=== PATIENT | male | born 1970 | race Caucasian/White ===

== ENCOUNTER 2019-05-30 18:13 | Emergency (ER) | payer BC ==
[~2019-05-30] VITALS: Ht 167.6 cm; Wt 148.8 kg
--- NOTE | 2019-05-30 18:25 | NUR ---
REPORT TO Mercedes ORR R.N. PATIENT IN BED HOOKED TO BP MONITOR. PHARMACY CALLED TO VERIFY PAIN MEDICATION PATIENT WAITING ON XRAY
[2019-05-30] MEDS ORDERED: CLONIDINE HCL 0.2 MG TAB PO ONE (18:30)
[2019-05-30] MEDS ORDERED: HYDROCODONE/APAP 7.5MG-325MG 1 EA TAB PO ONE (18:30)
[2019-05-30] MEDS ORDERED: ONDANSETRON HCL 4 MG ORAL DISINTEGRATING TAB PO ONE (18:30)
--- NOTE | 2019-05-30 19:00 | Diagnostic Imaging Report ---
WRIST COMPLETE LEFT, HAND 3+ VIEWS LEFT - 3 views HISTORY: ^pain ^[id number] ^[id number] COMPARISON: None available. FINDINGS: Bones: No acute displaced fracture. Osseous alignment is within normal limits. Joints: The joint spaces are well-maintained. Soft tissues: The soft tissues appear unremarkable. IMPRESSION: No acute radiographic abnormality. Signed by: Elver Jay MD on 05/30/2019 6:57 PM
[2019-05-30 19:25] VITALS: BP 182/86
== END 2019-05-30 19:08 | disposition home or self-care (01) ==
LOC: ER 18:13
DX: S63.522A Sprain of radiocarpal joint of left wrist, initial encounter (principal); S63.622A Sprain of interphalangeal joint of left thumb, initial encounter; X50.1XXA Overexertion from prolonged static or awkward postures, initial encounter; Y92.008 Other place in unspecified non-institutional (private) residence as the place of occurrence of the external cause
CPT/HCPCS: 73110; 73130; 99283; Q0162

== ENCOUNTER 2020-05-05 20:23 | Observation (INO) | payer BC ==
[~2020-05-05] VITALS: Ht 167.6 cm; Wt 148.8 kg
[2020-05-05 20:43] LABS: BASOPHILS # (AUTO) 0.1 (0.0-0.1); BASOPHILS % 0.8 % (0.0-1.0); EOSINOPHILS # (AUTO) 0.3 (0.0-0.4); EOSINOPHILS % 2.9 % (0.0-6.0); HEMATOCRIT 39.7 % (38.2-49.6); HEMOGLOBIN 13.2 g/dL (14.0-18.0); LYMPHOCYTES # (AUTO) 3.8 (1.0-3.2); LYMPHOCYTES % 41.5 % (18.0-39.1); MEAN CORPUSCULAR HGB CONC 33.2 g/dL (31-35); MEAN CORPUSCULAR VOLUME 93.2 fL (81-99); MONOCYTES % 11.4 % (4.4-11.3); NEUTROPHILS # (AUTO) 3.9 (2.1-6.9); NEUTROPHILS % 42.4 % (38.7-80.0); PLATELET COUNT 186 x10e3/uL (140-360); RED BLOOD COUNT 4.26 x10e6/uL (4.3-5.7); RED CELL DISTRIBUTION WIDTH 12.7 % (11.7-14.4)
[2020-05-05] MEDS ORDERED: ASPIRIN 81 MG CHEW TAB PO ONE (20:45)
[2020-05-05] MEDS ORDERED: HYDRALAZINE HCL 10 MG TAB PO ONE (20:45)
[2020-05-05 20:52] LABS: INR 0.98; PROTHROMBIN TIME 13.6 seconds (11.9-14.5)
[2020-05-05 20:53] LABS: PARTIAL THROMBOPLASTIN TIME 29.7 seconds (23.8-35.5)
[2020-05-05 21:02] LABS: ALANINE AMINOTRANSFERASE 90 IU/L (0-55); ALBUMIN 3.6 g/dL (3.5-5.0); ALBUMIN/GLOBULIN RATIO 0.9 (0.8-2.0); ALKALINE PHOSPHATASE 69 IU/L (40-150); ANION GAP 12.2 mmol/L (8-16); BLOOD UREA NITROGEN 15 mg/dL (7-26); BUN/CREATININE RATIO 14 (6-25); CARBON DIOXIDE 26 mmol/L (22-29); CHLORIDE 106 mmol/L (98-107); CREATINE KINASE 131 IU/L (30-200); CREATININE, SERUM 1.09 mg/dL (0.72-1.25); EST GLOMERULAR FILTRATION RATE > 60 ML/MIN (60-); GLUCOSE 162 mg/dL (74-118); POTASSIUM 4.2 mmol/L (3.5-5.1); SODIUM 140 mmol/L (136-145)
[2020-05-05] MEDS ORDERED: DEXTROSE 50% SYRINGE 50 ML IV PRN (22:15)
[2020-05-05] MEDS ORDERED: SODIUM CHLORIDE FLUSH 10 ML SYR INJ PRN (22:15)
[2020-05-05] MEDS ORDERED: ONDANSETRON HCL INJ 2MG/ML 2ML 2 MG/ML VIAL IV PRN (22:15)
[2020-05-05] MEDS ORDERED: ACETAMINOPHEN 1000 MG/100 ML 100 ML IV ONE (22:27)
[2020-05-06] VITALS (8 sets, daily range): BP systolic 140–195; BP diastolic 77–97
[2020-05-06] MEDS: NITROGLYCERIN 2% OINT 1 GM PKT TOP SCH ×3 (00:38→11:20)
[2020-05-06] MEDS: FAMOTIDINE 20 MG/2 ML VIAL IV SCH ×2 (00:38→09:40)
[2020-05-06] MEDS ORDERED: ONDANSETRON HCL INJ 2MG/ML 2ML 2 MG/ML VIAL IV PRN (00:45)
[2020-05-06] MEDS ORDERED: HYDRALAZINE HCL 20 MG/ML VIAL IV PRN (00:45)
[2020-05-06] MEDS ORDERED: POLYETHYLENE GLYCOL 3350 17 GM PACK PO PRN (00:45)
[2020-05-06] MEDS ORDERED: DEXTROSE 50% SYRINGE 50 ML IV PRN (00:45)
[2020-05-06] MEDS ORDERED: DIPHENHYDRAMINE HCL 25 MG CAP PO PRN (00:45)
[2020-05-06] MEDS ORDERED: POTASSIUM CHLORIDE 20 MEQ TAB CR PO PRN (00:45)
[2020-05-06] MEDS ORDERED: SIMETHICONE 80 MG CHEW PO PRN (00:45)
[2020-05-06] MEDS ORDERED: DOCUSATE SODIUM 100 MG CAP PO PRN (00:45)
[2020-05-06] MEDS ORDERED: MELATONIN 5 MG TABLET PO PRN (00:45)
[2020-05-06] MEDS ORDERED: ACETAMINOPHEN 325 MG TAB PO PRN (00:45)
[2020-05-06] MEDS ORDERED: LOSARTAN-HCTZ1 EAC2 (03:26)
[2020-05-06] MEDS ORDERED: LEVOTHYROXINE50 MCG PO (03:26)
[2020-05-06] MEDS ORDERED: CRESTOR10 MG (03:26)
[2020-05-06] MEDS ORDERED: METFORMIN HCL500 MG PO (03:26)
[2020-05-06 06:57] LABS: BASOPHILS # (AUTO) 0.1 (0.0-0.1); BASOPHILS % 0.8 % (0.0-1.0); EOSINOPHILS # (AUTO) 0.3 (0.0-0.4); EOSINOPHILS % 3.4 % (0.0-6.0); HEMATOCRIT 37.1 % (38.2-49.6); HEMOGLOBIN 12.3 g/dL (14.0-18.0); LYMPHOCYTES # (AUTO) 2.5 (1.0-3.2); MEAN CORPUSCULAR HEMOGLOBIN 31.3 pg (28-32); MEAN CORPUSCULAR HGB CONC 33.2 g/dL (31-35); MEAN CORPUSCULAR VOLUME 94.4 fL (81-99); MONOCYTES # (AUTO) 0.9 (0.2-0.8); MONOCYTES % 11.6 % (4.4-11.3); NEUTROPHILS # (AUTO) 3.6 (2.1-6.9); NEUTROPHILS % 49.2 % (38.7-80.0); PLATELET COUNT 179 x10e3/uL (140-360); RED BLOOD COUNT 3.93 x10e6/uL (4.3-5.7); RED CELL DISTRIBUTION WIDTH 12.8 % (11.7-14.4)
[2020-05-06 07:13] LABS: ANION GAP 12.3 mmol/L (8-16); BLOOD UREA NITROGEN 15 mg/dL (7-26); BUN/CREATININE RATIO 16 (6-25); CALCIUM 8.4 mg/dL (8.4-10.2); CARBON DIOXIDE 22 mmol/L (22-29); CHLORIDE 107 mmol/L (98-107); CREATININE, SERUM 0.93 mg/dL (0.72-1.25); EST GLOMERULAR FILTRATION RATE > 60 ML/MIN (60-); GLUCOSE 134 mg/dL (74-118); POTASSIUM 4.3 mmol/L (3.5-5.1); SODIUM 137 mmol/L (136-145)
[2020-05-06 07:25] LABS: CHOL/HDL RATIO 4.2 (3.9-4.7)
[2020-05-06] MEDS ORDERED: PANTOPRAZOLE SOD 40 MG TABEC PO SCH (07:30)
[2020-05-06] MEDS: INSULIN REGULAR, HUMAN 100 UNIT/1 ML 3ML VIAL SQ SCH ×2 (07:30→11:37)
[2020-05-06 07:34] LABS: THYROID STIMULATING HORMONE 5.397 uIU/mL (0.350-4.940)
[2020-05-06 07:39] LABS: CREATINE KINASE MB 1.5 ng/mL (0-5.0)
[2020-05-06] MEDS ORDERED: ASPIRIN 325 MG TAB EC PO SCH (09:00)
[2020-05-06] MEDS ORDERED: COREG12.5 MG PO (10:52)
[2020-05-06] MEDS ORDERED: CLOPIDOGREL75 MG PO (10:53)
[2020-05-06] MEDS ORDERED: ASPIRIN81 MG PO (10:54)
[2020-05-06] MEDS ORDERED: CLONIDINE HCL0.1 MG PO (10:55)
[2020-05-06] MEDS: CARVEDILOL 12.5 MG TAB PO SCH ×2 (11:18→16:00)
[2020-05-06 13:07] LABS: CREATINE KINASE MB 1.5 ng/mL (0-5.0)
[2020-05-06] MEDS ORDERED: ENOXAPARIN SOD INJ 40 MG/0.4 ML SYR SC SCH (17:00)
== END 2020-05-06 16:21 | disposition home or self-care (01) ==
LOC: ER 20:29 → ERHOLD 22:08 → MED/SURG3 23:42
PROVIDERS: ADMIT Internal Medicine; ATTEND Internal Medicine
DX: R07.89 Other chest pain (principal); I10 Essential (primary) hypertension; E11.9 Type 2 diabetes mellitus without complications; E78.5 Hyperlipidemia, unspecified; Z88.5 Allergy status to narcotic agent; E66.01 Morbid (severe) obesity due to excess calories; Z82.49 Family history of ischemic heart disease and other diseases of the circulatory system; E03.9 Hypothyroidism, unspecified; K76.0 Fatty (change of) liver, not elsewhere classified; Z20.822 Contact with and (suspected) exposure to COVID-19
CPT/HCPCS: 36415 ×2; 71045; 80048; 80053; 80061; 82550 ×2; 82553 ×2; 82948; 83036; 83735; 83880; 84443; 84484 ×2; 85025 ×2; 85610; 85730; 93005; 93306; 99284; G0378 ×2; J0131; J1817; S0164; U0002

== ENCOUNTER 2021-06-27 15:34 | Inpatient (IN) | payer BC ==
[~2021-06-27] VITALS: Ht 167.6 cm; Wt 113.4 kg
[~2021-06-27 15:34] MED LIST: ASPIRIN81 MG PO; CLONIDINE HCL0.1 MG PO; CLOPIDOGREL75 MG PO; COREG12.5 MG PO; CRESTOR10 MG; LEVOTHYROXINE50 MCG PO; LOSARTAN-HCTZ1 EAC2; METFORMIN HCL500 MG PO
[2021-06-27] MEDS ORDERED: Morphine 4mg Syringe 4 MG/ML INJ IV PRN (16:00)
[2021-06-27] MEDS ORDERED: ONDANSETRON HCL INJ 2MG/ML 2ML 2 MG/ML VIAL IV PRN ×3 (16:00→22:30)
[2021-06-27] MEDS ORDERED: SODIUM CHLORIDE 0.9% 1000ML 1,000 ML IV ONE (16:00)
[2021-06-27 16:15] LABS: BASOPHILS # (AUTO) 0.1 (0.0-0.1); BASOPHILS % 0.7 % (0.0-1.0); EOSINOPHILS # (AUTO) 0.2 (0.0-0.4); EOSINOPHILS % 1.9 % (0.0-6.0); HEMATOCRIT 42.4 % (38.2-49.6); HEMOGLOBIN 14.3 g/dL (14.0-18.0); LYMPHOCYTES # (AUTO) 2.2 (1.0-3.2); LYMPHOCYTES % 22.6 % (18.0-39.1); MEAN CORPUSCULAR HEMOGLOBIN 32.2 pg (28-32); MEAN CORPUSCULAR HGB CONC 33.7 g/dL (31-35); MEAN CORPUSCULAR VOLUME 95.5 fL (81-99); NEUTROPHILS # (AUTO) 6.2 (2.1-6.9); NEUTROPHILS % 64.3 % (38.7-80.0); PLATELET COUNT 177 x10e3/uL (140-360); RED BLOOD COUNT 4.44 x10e6/uL (4.3-5.7); RED CELL DISTRIBUTION WIDTH 12.9 % (11.7-14.4)
[2021-06-27 16:18] LABS: CLARITY,URINE SL CLOUDY (CLEAR); COLOR,URINE AMBER (YELLOW); KETONES,URINE NEGATIVE (NEGATIVE); LEUKOCYTE ESTERASE ,URINE NEGATIVE (NEGATIVE); NITRITE,URINE NEGATIVE (NEGATIVE); PROTEIN,URINE DIPSTICK 2+ (NEGATIVE); URINE UROBILINOGEN 1 mg/dL (0.2 - 1)
[2021-06-27 16:29] LABS: AMORPHOUS SEDIMENT,URINE MODERATE (FEW); BACTERIA,URINE MANY /HPF; MUCUS,URINE MANY (RARE)
[2021-06-27 16:32] LABS: INR 1.04; PROTHROMBIN TIME 14.5 seconds (11.9-14.5)
[2021-06-27 16:37] LABS: AMYLASE 63 U/L (25-125); LIPASE 38 U/L (8-78)
[2021-06-27 16:39] LABS: ALBUMIN 3.6 g/dL (3.5-5.0); ALBUMIN/GLOBULIN RATIO 0.9 (0.8-2.0); ANION GAP 11.2 mmol/L (8-16); CALCIUM 8.8 mg/dL (8.4-10.2); CREATININE, SERUM 0.9 mg/dL (0.72-1.25); POTASSIUM 4.2 mmol/L (3.5-5.1)
[2021-06-27] MEDS: SODIUM CHLORIDE 0.9% 1000ML 1,000 ML IV SCH ×2 (18:44→20:50)
[2021-06-27] MEDS ORDERED: HUMALOG MI100 UNIT/2 SQ (21:03)
[2021-06-27] MEDS ORDERED: OZEMPIC0.25 MG/0. SC (21:03)
[2021-06-27 21:18] VITALS: BP 164/74
[2021-06-27 21:20] VITALS: BP 164/74
[2021-06-27 21:30] VITALS: BP 164/74
[2021-06-27] MEDS ORDERED: HYDRALAZINE HCL 20 MG/ML VIAL IV PRN (22:30)
[2021-06-27 23:58] VITALS: BP 150/83
[2021-06-28 05:10] VITALS: BP 142/70
[2021-06-28 06:01] LABS: BASOPHILS # (AUTO) 0.1 (0.0-0.1); BASOPHILS % 0.9 % (0.0-1.0); EOSINOPHILS # (AUTO) 0.3 (0.0-0.4); EOSINOPHILS % 3.6 % (0.0-6.0); HEMATOCRIT 42.4 % (38.2-49.6); HEMOGLOBIN 13.9 g/dL (14.0-18.0); LYMPHOCYTES # (AUTO) 3.1 (1.0-3.2); LYMPHOCYTES % 40.2 % (18.0-39.1); MEAN CORPUSCULAR HEMOGLOBIN 32.2 pg (28-32); MEAN CORPUSCULAR HGB CONC 32.8 g/dL (31-35); MEAN CORPUSCULAR VOLUME 98.1 fL (81-99); MONOCYTES # (AUTO) 0.8 (0.2-0.8); MONOCYTES % 10.2 % (4.4-11.3); NEUTROPHILS # (AUTO) 3.5 (2.1-6.9); NEUTROPHILS % 44.6 % (38.7-80.0); PLATELET COUNT 171 x10e3/uL (140-360); RED BLOOD COUNT 4.32 x10e6/uL (4.3-5.7)
[2021-06-28 06:12] LABS: ALBUMIN 3.3 g/dL (3.5-5.0); ALBUMIN/GLOBULIN RATIO 0.9 (0.8-2.0); ANION GAP 12.3 mmol/L (8-16); CALCIUM 8.6 mg/dL (8.4-10.2); CHOL/HDL RATIO 4.1 (3.9-4.7); CREATININE, SERUM 0.91 mg/dL (0.72-1.25); MAGNESIUM 2.2 MG/DL (1.3-2.1); PHOSPHORUS 3.5 MG/DL (2.3-4.7); POTASSIUM 4.3 mmol/L (3.5-5.1)
[2021-06-28 06:39] LABS: THYROID STIMULATING HORMONE 3.572 uIU/mL (0.350-4.940)
[2021-06-28] MEDS ORDERED: LEVOTHYROXINE SODIUM 50 MCG TAB PO SCH (07:30)
[2021-06-28 08:42] VITALS: BP 171/82
[2021-06-28] MEDS ORDERED: CARVEDILOL 12.5 MG TAB PO SCH (09:00)
[2021-06-28] MEDS ORDERED: LOSARTAN POTASSIUM 100 MG TAB PO SCH (09:00)
[2021-06-28 11:14] VITALS: BP 154/82
[2021-06-28 11:19] VITALS: BP 154/82
[2021-06-28] MEDS ORDERED: INS LISP PRO/LISP HUMAN 75/25 100 UNITS/ML VIAL SC SCH (12:30)
[2021-06-28] MEDS ORDERED: PROPOFOL IV EMULSION 10 MG/ML 20 ML VIAL ONE (12:43)
[2021-06-28] MEDS ORDERED: LIDOCAINE HCL 2% LOCAL INJ 5 ML SDV VIAL INJ ONE (12:43)
[2021-06-28] MEDS ORDERED: FENTANYL CITRATE/PF 100MCG/2 ML INJ ONE (12:58)
[2021-06-28] MEDS ORDERED: MIDAZOLAM HCL 2 MG/2 ML VIAL ONE (12:58)
[2021-06-28] MEDS ORDERED: NON-FORMULARY MEDICATION (Insulin Npl/Insulin Lispro* (Humalog Mix 75-25 Kwikpen*) 1 UNIT) SQ SCH (15:00)
[2021-06-28 15:47] VITALS: BP 142/73
[2021-06-28] MEDS ORDERED: METOCLOPRAMIDE10 MG PO (18:30)
[2021-06-28] MEDS ORDERED: PANTOPRAZOLE SO40 MG PO (18:30)
== END 2021-06-28 18:55 | disposition home or self-care (01) | DRG 381 ==
LOC: ER 16:04 → ERHOLD 17:53 → MED/SURG3 20:46
PROVIDERS: ADMIT Internal Medicine; ATTEND Internal Medicine
PROC: 0DB78ZX Excision of Stomach, Pylorus, Via Natural or Artificial Opening Endoscopic, Diagnostic (ICD-10-PCS; 2021-06-28)
PROC: 0DD38ZX Extraction of Lower Esophagus, Via Natural or Artificial Opening Endoscopic, Diagnostic (ICD-10-PCS; principal; 2021-06-28 15:30)
PROC: 0DB68ZX Excision of Stomach, Via Natural or Artificial Opening Endoscopic, Diagnostic (ICD-10-PCS; 2021-06-28 15:30)
DX: K22.11 Ulcer of esophagus with bleeding (principal); Z68.41 Body mass index [BMI] 40.0-44.9, adult; I85.00 Esophageal varices without bleeding; K70.30 Alcoholic cirrhosis of liver without ascites; E11.65 Type 2 diabetes mellitus with hyperglycemia; E03.9 Hypothyroidism, unspecified; E11.69 Type 2 diabetes mellitus with other specified complication; K29.70 Gastritis, unspecified, without bleeding; R79.89 Other specified abnormal findings of blood chemistry; I10 Essential (primary) hypertension; E78.5 Hyperlipidemia, unspecified; E66.01 Morbid (severe) obesity due to excess calories; I25.10 Atherosclerotic heart disease of native coronary artery without angina pectoris; F10.21 Alcohol dependence, in remission; Z95.5 Presence of coronary angioplasty implant and graft; Z20.822 Contact with and (suspected) exposure to COVID-19; Z79.4 Long term (current) use of insulin; Z79.84 Long term (current) use of oral hypoglycemic drugs
CPT/HCPCS: 36415; 43235; 43239; 74018; 76705; 80053; 80061; 81001; 82150; 82948; 83036; 83690; 83735; 84100; 84443; 85025; 85610; 88112; 88305; 88312; 93005; 94799; 99283; J1815; J2001; J2250; J2405; J3010; J7030; U0002